=== PATIENT | male | born 1950 | race Caucasian/White ===

== ENCOUNTER 2021-10-25 06:18 | Day surgery (SDC) | payer MEDICARE, OTHER, SELFPAY ==
[2021-10-25] MEDS: TETRACAINE 0.5% OPHTH 1 DROP EYE-LEFT ×2 (06:30→06:35)
[2021-10-25] MEDS: KETOROLAC OPHTH 0.5% 1 DROP EYE-LEFT ×2 (06:34→06:35)
[2021-10-25 06:43] VITALS: BP 133/87; PULSE 60; RESP 16; TEMP 36.2; O2SAT 96
[2021-10-25] MEDS: SODIUM CHLORIDE 0.9 % (FLUSH) 10 ML SYRINGE IVF (06:50)
[2021-10-25 07:00] VITALS: BMI 31.1
[2021-10-25] MEDS: TETRACAINE 0.5% OPHTH 2 DROP EYE-LEFT (07:18)
[2021-10-25] MEDS: BALANCED SALT IRRIG SOLN 15 ML EYE-LEFT (07:22)
--- NOTE | 2021-10-25 07:23 | SUR.PREOP ---
The eye drops brought by the patient (Ketorolac and Prednisolone) are examined and I have determined they are labeled by the patient's pharmacy for this patient as prescribed by the surgeon. The bottles are intact, recently obtained and appear to be correct.
--- NOTE | 2021-10-25 07:45 | W.ANESCHARGE ---
Anesthesia Charges Start Date/Time Anesthesia Start Date: 10/25/21 Stop Date/Time Anesthesia Stop Date: 10/25/21 Anesthesia Stop Time: 07:42 Summary Emergency: No
[2021-10-25 07:47] VITALS: BP 135/89; PULSE 63; RESP 16; TEMP 36.2; O2SAT 96
--- NOTE | 2021-10-25 08:00 | W.ANESCHARGE ---
Anesthesia Charges Start Date/Time Anesthesia Start Date: 10/25/21 Anesthesia Start Time: 07:11 Stop Date/Time Anesthesia Stop Date: 10/25/21 Anesthesia Stop Time: 07:42 Summary Emergency: No
--- NOTE | 2021-10-25 08:34 | P.PCN_ITS ---
Procedure Note Date Seen: 10/25/21 Will [facility] bill your pro fee for this procedure?: Yes Procedure Description: SURGEON: Kaitlyn Velez MD PREOPERATIVE DIAGNOSIS: Nuclear sclerotic cataract, left eye. POSTOPERATIVE DIAGNOSIS: Nuclear sclerotic cataract, left eye. NAME OF OPERATION: Phacoemulsification of cataract with posterior chamber intraocular lens implantation in the left eye. ANESTHESIA: Topical. ESTIMATED BLOOD LOSS: Less than 2 cc. COMPLICATIONS: None. PATHOLOGY SPECIMEN: None. INDICATIONS: See consult note for details. The risks, benefits and alternatives of the procedure were explained to the patient, who elected to proceed and signed informed consent to do so. PROCEDURE: The patient was brought to the pre-holding area where the left eye was identified as the operative eye. I placed my initials above this eye. The patient received eye drops consisting of 0.5% tetracaine, 1% tropicamide, 10% phenylephrine, and 0.5% ketorolac. The patient was then brought to the operating room where the left eye was again identified as the operative eye. The eye was prepped with Betadine and draped in the usual sterile ophthalmic fashion. A #15 super-sharp blade was used to create a paracentesis site. 1% non-preserved intracameral lidocaine was injected into the anterior chamber. Endocoat was injected into the anterior chamber. A 2.4 mm keratome was used to create a three-plane self-sealing incision 1 mm anterior to the temporal limbus. A cystotome was used to create an anterior capsular leaflet. The Utrata forceps were used to extend this to form a continuous curvilinear capsulorrhexis. Hydrodissection was performed. The cataract was removed with phacoemulsification using the [id number] technique. The irrigation and aspiration tip was used to remove the remaining cortex. Healon was injected into the capsular bag. An NAUN ZCB00 intraocular lens of 17.5 diopters was injected into the capsular bag. The irrigation and aspiration tip was used to remove the remaining viscoelastic. Balanced salt solution on a cannula was used to hydrate the wound, and the wound was found to be watertight. Miostat was injected into due to borderline floppy iris. The pupil was noted to be round. DISPOSITION: The patient was taken to the recovery room and discharged to home in stable condition. The patient was instructed to call me or go to the emergency department with any sudden change, including dramatic loss of vision, severe pain in the eye or eyebrow region, nausea, or vomiting. The patient will follow up in the clinic tomorrow morning. Surgeon: Kaitlyn Velez MD
--- NOTE | 2021-11-16 08:19 | W.ANESCHARGE ---
Anesthesia Charges Start Date/Time Anesthesia Start Date: 10/25/21 Anesthesia Start Time: 07:11 Stop Date/Time Anesthesia Stop Date: 10/25/21 Anesthesia Stop Time: 07:42 Summary Emergency: No
--- NOTE | 2021-11-16 08:19 | W.ANESCHARGE ---
Anesthesia Charges Start Date/Time Anesthesia Start Date: 10/25/21 Anesthesia Start Time: 07:11 Stop Date/Time Anesthesia Stop Date: 10/25/21 Anesthesia Stop Time: 07:42 Summary Emergency: No
--- NOTE | 2021-11-16 08:20 | W.ANESCHARGE ---
Anesthesia Charges Start Date/Time Anesthesia Start Date: 10/25/21 Anesthesia Start Time: 07:11 Stop Date/Time Anesthesia Stop Date: 10/25/21 Anesthesia Stop Time: 07:42 Summary Emergency: No
--- NOTE | 2021-11-16 08:20 | W.ANESCHARGE ---
Anesthesia Charges Start Date/Time Anesthesia Start Date: 10/25/21 Anesthesia Start Time: 07:11 Stop Date/Time Anesthesia Stop Date: 10/25/21 Anesthesia Stop Time: 07:42 Summary Emergency: No
--- NOTE | 2021-11-16 08:21 | W.ANESCHARGE ---
Anesthesia Charges Start Date/Time Anesthesia Start Date: 10/25/21 Anesthesia Start Time: 07:11 Stop Date/Time Anesthesia Stop Date: 10/25/21 Anesthesia Stop Time: 07:42 Summary Emergency: No
== END 2021-10-25 08:19 | disposition home or self-care (01) ==
PROVIDERS: PCP Family Medicine; Visit Provider Ophthalmology
PROC: (CPT 66984; principal; 2021-10-25 06:15)
DX: H25.12 Age-related nuclear cataract, left eye (principal)
CPT/HCPCS: 66984; 142; A9270; J2250; J3010; V2632

== ENCOUNTER 2021-11-15 10:16 | Day surgery (SDC) | payer MEDICARE, OTHER, SELFPAY ==
[2021-11-15] MEDS: TETRACAINE 0.5% OPHTH 1 DROP EYE-RIGHT ×2 (10:28→10:32)
[2021-11-15] MEDS: KETOROLAC OPHTH 0.5% 1 DROP EYE-RIGHT ×2 (10:31→10:35)
[2021-11-15 10:32] VITALS: BMI 31.0
[2021-11-15 10:41] VITALS: BP 152/82; PULSE 63; RESP 16; TEMP 36.6; O2SAT 96
[2021-11-15] MEDS: SODIUM CHLORIDE 0.9 % (FLUSH) 10 ML SYRINGE IVF (10:43)
[2021-11-15] MEDS: TETRACAINE 0.5% OPHTH 2 DROP EYE-RIGHT (11:23)
[2021-11-15] MEDS: BALANCED SALT IRRIG SOLN 15 ML EYE-RIGHT (11:27)
--- NOTE | 2021-11-15 11:28 | W.ANESCHARGE ---
Anesthesia Charges Start Date/Time Anesthesia Start Date: 11/15/21 Anesthesia Start Time: 11:20 Stop Date/Time Anesthesia Stop Date: 11/15/21 Anesthesia Stop Time: 11:50 Summary Emergency: No
[2021-11-15 11:48] VITALS: BP 135/88; PULSE 61; RESP 16; TEMP 36.2; O2SAT 97
--- NOTE | 2021-11-15 12:40 | PM.PROC ---
Procedure Note Date Seen: 11/15/21 Will [facility] bill your pro fee for this procedure?: Yes Procedure Description: SURGEON: Kaitlyn Velez MD PREOPERATIVE DIAGNOSIS: Nuclear sclerotic cataract, right eye. POSTOPERATIVE DIAGNOSIS: Nuclear sclerotic cataract, right eye. NAME OF OPERATION: Phacoemulsification of cataract with posterior chamber intraocular lens implantation in the right eye. ANESTHESIA: Topical. ESTIMATED BLOOD LOSS: Less than 2 cc. COMPLICATIONS: None. PATHOLOGY SPECIMEN: None. INDICATIONS: See consult note for details. The risks, benefits and alternatives of the procedure were explained to the patient, who elected to proceed and signed informed consent to do so. PROCEDURE: The patient was brought to the pre-holding area where the right eye was identified as the operative eye. I placed my initials above this eye. The patient received eye drops consisting of 0.5% tetracaine, 1% tropicamide, 10% phenylephrine, and 0.5% ketorolac. The patient was then brought to the operating room where the right eye was again identified as the operative eye. The eye was prepped with Betadine and draped in the usual sterile ophthalmic fashion. A #15 super-sharp blade was used to create a paracentesis site. 1% non-preserved intracameral lidocaine was injected into the anterior chamber. Endocoat was injected into the anterior chamber. A 2.4 mm keratome was used to create a three-plane self-sealing incision 1 mm anterior to the temporal limbus. A cystotome was used to create an anterior capsular leaflet. The Utrata forceps were used to extend this to form a continuous curvilinear capsulorrhexis. Hydrodissection was performed. The cataract was removed with phacoemulsification using the [id number] technique. The irrigation and aspiration tip was used to remove the remaining cortex. Healon was injected into the capsular bag. An NAUN ZCB00 intraocular lens of 19.5 diopters was injected into the capsular bag. The irrigation and aspiration tip was used to remove the remaining viscoelastic. Balanced salt solution on a cannula was used to hydrate the wound, and the wound was found to be watertight. The pupil was noted to be round. DISPOSITION: The patient was taken to the recovery room and discharged to home in stable condition. The patient was instructed to call me or go to the emergency department with any sudden change, including dramatic loss of vision, severe pain in the eye or eyebrow region, nausea, or vomiting. The patient will follow up in the clinic tomorrow morning. Surgeon: Kaitlyn Velez MD
== END 2021-11-15 12:05 | disposition home or self-care (01) ==
PROVIDERS: PCP Family Medicine; Visit Provider Ophthalmology
PROC: (CPT 66984; principal; 2021-11-15 10:30)
DX: H25.11 Age-related nuclear cataract, right eye (principal)
CPT/HCPCS: 66984; 00142; A9270; J2250; J3010; V2632

== ENCOUNTER 2023-12-02 08:50 | Emergency (ER) | payer MEDICARE, OTHER, SELFPAY ==
[2023-12-02 08:56] VITALS: BP 153/102; PULSE 87; O2SAT 93; BMI 30.3
[2023-12-02 09:06] VITALS: RESP 18; TEMP 36.2
[2023-12-02 09:12] VITALS: O2SAT 95
--- NOTE | 2023-12-02 09:12 | CRLHL7_ITS ---
For Patients: As a result of the Century Cures Act, medical imaging exams and procedure reports are released immediately into your electronic medical record. You may view this report before your referring provider. If you have questions, please contact your health care provider. Indication: Shortness of breath and palpitations Technique: Chest 2 views Comparison: Chest x-ray 02/19/2017 Findings/Impression: Cardiovascular and mediastinum: Normal heart size with aortic tortuosity. Lungs and pleural spaces: Lungs are clear. No sign of infiltrate or mass. No sign of pleural effusion. No pneumothorax. Bones and soft tissues: Old midthoracic compression fracture. Surgical clips within the upper abdomen. Dictated by Glen Francis MD @ 12/02/2023 9:59:33 AM (Electronically Signed)
[2023-12-02] MEDS: 0.9 % SODIUM CHLORIDE 1000 ml 1,000 ML IV (09:20)
[2023-12-02] MEDS: ASPIRIN 81 MG TAB.CHEW 324 MG PO (09:20)
[2023-12-02 09:40] LABS: Basophils Absolute Auto 0.01 K/uL (0.00-0.30); Basophils Percent Auto 0.1 % (0.0-3.0); Eosinophils Absolute Auto 0.22 K/uL (0.00-0.50); Hematocrit 46.1 % (37.0-53.0); Immature Granulocytes Abs Auto 0.02 K/uL (0.00-0.30); Immature Granulocytes Pct Auto 0.2 %; Mean Corpuscular HGB Conc 33 gm/dL (32-36); Mean Corpuscular Hemoglobin 28 pg (26-34); Mean Corpuscular Volume 87 fL (80-100); Monocytes Percent Auto 7.2 % (0.0-11.0); Neutrophils Percent Auto 76.5 % (42.0-72.0); Platelet Count* 196 K/uL (140-440); RDW Coefficient of Variation % 11.8 % (11.5-15.5); Slide Review Reflex No; White Blood Count* 10.75 K/uL (4.50-11.00)
[2023-12-02 09:53] LABS: Chloride* 105 mmol/L (96-114); Prothrombin Time 12.7 Seconds; Sodium* 137 mmol/L (135-149)
[2023-12-02 09:54] LABS: Potassium* 3.9 mmol/L (3.6-5.1)
[2023-12-02 09:55] LABS: Partial Thromboplastin Time* 26 Seconds (23-33)
[2023-12-02 09:56] LABS: Anion Gap 10 mEq/L (7-15); Carbon Dioxide* 22 mmol/L (20-32); Creatinine* 0.7 mg/dL (0.5-1.5); Est. Creatinine Clearance* 67.75; Estimated Glomerular Filt Rate 99 ml/min
[2023-12-02 09:57] LABS: Blood Urea Nitrogen* 12 mg/dL (7-30); Calcium* 9.1 mg/dL (8.4-10.6); D Dimer Quantitative* 0.38 ug/ml (0.00-0.50); Glucose* 141 mg/dL (60-115)
[2023-12-02 10:07] LABS: Ethanol* < 0.01 % (0.01-0.03); NT Pro B Type NatriureticPept* 66 pg/mL
[2023-12-02 10:43] LABS: PCR FLU A Negative PCR FLU A (Negative); PCR FLU B Negative PCR FLU B (Negative); PCR RSV Negative PCR RSV (Negative); SARS PCR* Negative SARS-CoV-2 (Negative)
[2023-12-02 10:56] LABS: Troponin, Point-of-Care* 0.01 ng/ml (0.01-0.04)
[2023-12-02 12:36] LABS: Amphetamine Screen Urine Negative (Negative); Barbiturate Screen Urine Negative (Negative); Benzodiazepines Screen Urine Negative (Negative); Cannabinoid Screen Urine POSITIVE (Negative); Cocaine Screen Urine Negative (Negative); Methadone Screen Urine Negative (Negative); Methamphetamines Screen Urine Negative (Negative); Opiate Screen Urine Negative (Negative); Oxycodone Screen Urine Negative (Negative); Phencyclidine Screen Urine Negative (Negative); Tricyclic Antidepressant Urine Negative (Negative)
--- NOTE | 2023-12-02 16:10 | ED_ITS ---
HPI - Arrhythmia/Palpitations General Date Seen: 12/02/23 Chief Complaint: Arrhythmia/Palpitations Stated Complaint: palpitations, sweating, shortness of breath Time Seen by Provider: 12/02/23 08:51 Source: patient Mode of arrival: ambulatory Limitations: no limitations History of Present Illness HPI narrative: Patient is a 73-year-old gentleman who presents here with palpitations and elev ated blood pressure. He has been taking his blood pressure multiple times a day, noted that is pulses been irregular. This did cause him to have some anxiety, he however denies to me that he has any chest pain or pressure, maybe a little bit mildly short of breath, maybe more sweating. No history of previous problems with heart issues, denies a fevers chills or sweats, no nausea vomiting, PND orthopnea, or exertional issues associated with this. Sees Dr. Ulrich at [facility]. Denies a history of alcohol drugs, was a smoker but quit approximately 10 years ago. Patient has not missed any of his scheduled medications play complaint: skipped beats and palpitations Onset (ago): day(s) Duration: intermittent Context: occurred during rest and occurred during exertion Related Data Home Medications ?Medication ?Instructions ?Recorded ?Confirmed atorvastatin 20 mg tablet 20 mg PO HS 10/23/21 11/15/21 losartan 25 mg tablet 25 mg PO DAILY 10/23/21 11/15/21 Previous Rx's ?Medication ?Instructions ?Recorded nirmatrelvir 300 mg (150 mg 3 ea (3 x 300 mg (150 mg x 2)-100 11/02/22 x2)-ritonavir 100 mg tablet,dose mg) PO QAM AND QPM #30 tabs pack (Paxlovid) Allergies Allergy/AdvReac Type Severity Reaction Status Date / Time amoxicillin [From Augmentin] Allergy Verified 11/02/22 18:40 clavulanic acid Allergy Verified 11/02/22 18:40 [From Augmentin] Sulfa (Sulfonamide Allergy Rash Verified 11/02/22 18:40 Antibiotics) Review of Systems Status of ROS: Reports: 10 or more systems reviewed and unremarkable except as noted in History and below [facility] Medical History Hernia ?K46.9 - Unspecified abdominal hernia without obstruction or gangrene (ICD- 10) Hypertension ?I10 - Essential (primary) hypertension (ICD-10) Stricture of sigmoid colon ?K56.699 - Other intestinal obstruction unspecified as to partial versus complete obstruction (ICD-10) Segmental colitis ?K50.10 - Crohn's disease of large intestine without complications (ICD-10) Prostate CA ?C61 - Malignant neoplasm of prostate (ICD-10) Prediabetes ?R73.03 - Prediabetes (ICD-10) Mixed hyperlipidemia ?E78.2 - Mixed hyperlipidemia (ICD-10) Elevated coronary artery calcium score ?R93.1 - Abnormal findings on diagnostic imaging of heart and coronary circulation (ICD-10) Diverticulosis of colon (without mention of hemorrhage) ?K57.30 - Diverticulosis of large intestine without perforation or abscess without bleeding (ICD-10) CAD (coronary artery disease) ?I25.10 - Atherosclerotic heart disease of [place] coronary artery without angina pectoris (ICD-10) Surgical History H/O left inguinal hernia repair ?Z98.890 - Other specified postprocedural states (ICD-10) ?Z87.19 - Personal history of other diseases of the digestive system (ICD-10) S/P cholecystectomy ?Z90.49 - Acquired absence of other specified parts of digestive tract (ICD- 10) H/O umbilical hernia repair ?Z98.890 - Other specified postprocedural states (ICD-10) ?Z87.19 - Personal history of other diseases of the digestive system (ICD-10) Social History Smoking Status: Never smoker How often do you have a drink containing alcohol: 2-3 times a week AUDIT-C Alcohol total score: 3 Non-prescribed substance use: denies use Caffeine: Yes (daily) Exam Const: Vital Signs, click to edit/add: Vital Signs - 24 hr 12/02/23 08:56 12/02/23 09:06 12/02/23 09:12 Temperature 97.1 F L Pulse Rate [Left P ulse Oximeter] 87 Respiratory Rate 18 Blood Pressure [Le ft Upper Arm] 153/102 H Pulse Oximetry 93 95 Oxygen Delivery Me thod Room Air Course Course ED Course: Has the patient stayed here E actually felt better he had less of non palpitations in develop any chest pain shortness of breath he received aspirin. I had a long discussion with him troponin x2, EKGs are negative, chest x-ray is reassuring, his D-dimer was normal also. I think it is reasonable let him go, he will need better control of his blood pressure in follow-up appointment with his primary care physician we will endeavor to get for him, I would also says suggest a stress echo as an outpatient, he should stay on 80 mg of aspirin until he has a follow-up with his doctor went over warning signs when he should re- presented he is very comfortable with this. Vital Signs Vital signs: Initial Vital Signs Pulse Rate 87 12/02/23 08:56 Pulse Rhythm Regular 12/02/23 08:56 Pulse Strength 3+ Normal 12/02/23 08:56 Blood Pressure 153/102 H 12/02/23 08:56 Blood Pressure Mean 119 H 12/02/23 08:56 Blood Pressure Position Sitting 12/02/23 08:56 Pulse Oximetry 93 12/02/23 08:56 Oxygen Delivery Method Room Air 12/02/23 08:56 Vital Signs Pulse Rate 87 12/02/23 08:56 Blood Pressure 153/102 H 12/02/23 08:56 Pulse Oximetry 93 12/02/23 08:56 Oxygen Delivery Method Room Air 12/02/23 08:56 Temperature 97.1 F L 12/02/23 09:06 Pulse Rate 87 12/02/23 08:56 Respiratory Rate 18 12/02/23 09:06 Blood Pressure 153/102 H 12/02/23 08:56 Pulse Oximetry 95 12/02/23 09:12 Oxygen Delivery Method Room Air 12/02/23 08:56 Medications Administered Medications: Discontinued Medications Generic Name Dose Route Start Last Admin Trade Name Freq PRN Reason Stop Dose Admin Aspirin 324 mg 12/02/23 09:12 12/02/23 09:20 Aspirin 81 Mg Tab.Chew PO 12/02/23 09:13 324 mg ONCE ONE Administration Sodium Chloride 1,000 mls @ 1,000 mls/hr 12/02/23 09:15 12/02/23 12:06 0.9 % Sodium Chloride 1000 Ml IV 12/02/23 10:14 Infused .Q1H ANA Infusion MDM - Arrhythmia/Palpitations MDM Narrative Medical decision making narrative: Differential diagnosis includes but is not limited to psychosocial stress, thyroid abnormalities, CHF, SVT, atrial fibrillation, ventricular tachycardia and ventricular fibrillation. This includes the life-threatening complications of heart failure, V-tach, and VFib new Medical Records Attestation: I reviewed the patient's medical records. Lab Data Attestation: I reviewed the patient's lab results. Labs: Lab Results 12/02/23 12/02/23 12/02/23 Range/Units 09:13 09:27 11:54 WBC 10.75 (4.50-11.00) K/uL RBC 5.30 (4.30-5.90) m/uL Hgb 15.0 (13.5-17.5) gm/dL Hct 46.1 (37.0-53.0) % MCV 87 (80-100) fL MCH 28 (26-34) pg MCHC 33 (32-36) gm/dL RDW Coeff of Quintin 11.8 (11.5-15.5) % Plt Count 196 (140-440) K/uL Neut % (Auto) 76.5 H (42.0-72.0) % Lymph % (Auto) 14.0 L (20-44) % [place] % (Auto) 7.2 (0.0-11.0) % Eos % (Auto) 2.0 (0.0-7.0) % Baso % (Auto) 0.1 (0.0-3.0) % Neut # (Auto) 8.20 H (1.7-7.0) K/uL Lymph # (Auto) 1.50 (0.90-2.90) K/uL [place] # (Auto) 0.80 (0.00-0.90) K/UL Eos # (Auto) 0.22 (0.00-0.50) K/uL Baso # (Auto) 0.01 (0.00-0.30) K/uL Abs Immat Gran (auto) 0.02 (0.00-0.30) K/uL Imm/Tot Granulo (auto) 0.2 % INR 0.90 L (0.91-1.10) APTT 26 (23-33) Seconds D-Dimer Quant (PE/DVT) 0.38 (0.00-0.50) ug/ml Sodium 137 (135-149) mmol/L Potassium 3.9 (3.6-5.1) mmol/L Chloride 105 (96-114) mmol/L Carbon Dioxide 22 (20-32) mmol/L Anion Gap 10 (7-15) mEq/L BUN 12 (7-30) mg/dL Creatinine 0.7 (0.5-1.5) mg/dL Estimated Creat Clear 67.75 Estimated GFR 99 ml/min Glucose 141 H (60-115) mg/dL Calcium 9.1 (8.4-10.6) mg/dL NT-Pro-B Natriuret Pep 66 pg/mL Urine Opiates Screen (Negative) Ur Oxycodone Screen (Negative) Urine Methadone Screen (Negative) Ur Barbiturates Screen (Negative) U Tricyclic Antidepress (Negative) Ur Phencyclidine Scrn (Negative) Ur Amphetamines Screen (Negative) U Methamphetamines Scrn (Negative) U Benzodiazepines Scrn (Negative) Urine Cocaine Screen (Negative) U Marijuana (THC) Screen (Negative) Ur Drug Screen Comment Ethyl Alcohol < 0.01 L (0.01-0.03) % SARS-CoV-2 (PCR) Negative SARS-CoV-2 (Negative) Influenza Type A (PCR) Negative PCR FLU A (Negative) Influenza Type B (PCR) Negative PCR FLU B (Negative) RSV (PCR) Negative PCR RSV (Negative) POC Troponin I 0.01 0.00 L (0.01-0.04) ng/ml 12/02/23 Range/Units 12:06 WBC (4.50-11.00) K/uL RBC (4.30-5.90) m/uL Hgb (13.5-17.5) gm/dL Hct (37.0-53.0) % MCV (80-100) fL MCH (26-34) pg MCHC (32-36) gm/dL RDW Coeff of Quintin (11.5-15.5) % Plt Count (140-440) K/uL Neut % (Auto) (42.0-72.0) % Lymph % (Auto) (20-44) % [place] % (Auto) (0.0-11.0) % Eos % (Auto) (0.0-7.0) % Baso % (Auto) (0.0-3.0) % Neut # (Auto) (1.7-7.0) K/uL Lymph # (Auto) (0.90-2.90) K/uL [place] # (Auto) (0.00-0.90) K/UL Eos # (Auto) (0.00-0.50) K/uL Baso # (Auto) (0.00-0.30) K/uL Abs Immat Gran (auto) (0.00-0.30) K/uL Imm/Tot Granulo (auto) % INR (0.91-1.10) APTT (23-33) Seconds D-Dimer Quant (PE/DVT) (0.00-0.50) ug/ml Sodium (135-149) mmol/L Potassium (3.6-5.1) mmol/L Chloride (96-114) mmol/L Carbon Dioxide (20-32) mmol/L Anion Gap (7-15) mEq/L BUN (7-30) mg/dL Creatinine (0.5-1.5) mg/dL Estimated Creat Clear Estimated GFR ml/min Glucose (60-115) mg/dL Calcium (8.4-10.6) mg/dL NT-Pro-B Natriuret Pep pg/mL Urine Opiates Screen Negative (Negative) Ur Oxycodone Screen Negative (Negative) Urine Methadone Screen Negative (Negative) Ur Barbiturates Screen Negative (Negative) U Tricyclic Antidepress Negative (Negative) Ur Phencyclidine Scrn Negative (Negative) Ur Amphetamines Screen Negative (Negative) U Methamphetamines Scrn Negative (Negative) U Benzodiazepines Scrn Negative (Negative) Urine Cocaine Screen Negative (Negative) U Marijuana (THC) Screen POSITIVE A (Negative) Ur Drug Screen Comment See Note Ethyl Alcohol (0.01-0.03) % SARS-CoV-2 (PCR) (Negative) Influenza Type A (PCR) (Negative) Influenza Type B (PCR) (Negative) RSV (PCR) (Negative) POC Troponin I (0.01-0.04) ng/ml Imaging Data Chest x-ray: Attestation: I have reviewed the pertinent imaging results. My impression: No acute change Radiologist's impression: Patient: Arturo Arthur MR#: [id number] : 1950 Acct:[id number] Loc: ED Service Date: 12/02/[address]: Ordering Physician: Cedric Valentin M.D. Date of Service: 12/02/23 Procedure(s): XR chest 2V Accession Number(s): [id number] cc: Yogi Ulrich M.D.; Cedric Valentin M.D.~ For Patients: As a result of the Cures Act, medical imaging exams and procedure reports are released immediately into your electronic medical record. You may view this report before your referring provider. If you have questions, please contact your health care provider. Indication: Shortness of breath and palpitations Technique: Chest 2 views Comparison: Chest x-ray 02/19/2017 Findings/Impression: Cardiovascular and mediastinum: Normal heart size with aortic tortuosity. Lungs and pleural spaces: Lungs are clear. No sign of infiltrate or mass. No sign of pleural effusion. No pneumothorax. Bones and soft tissues: Old midthoracic compression fracture. Surgical clips within the upper abdomen. Dictated by Glen Francis MD @ 12/02/2023 9:59:33 AM ECG Data Attestation: I personally reviewed and interpreted this ECG as follows: ECG interpretation date: 12/02/23 Interpretation: EKG shows sinus rhythm with occasional PACs no acute ST wave changes, notable ventricular rates 88. Normal QRS, normal QT and QTC. Discharge Plan Discharge Clinical Impression: Heart palpitations, Hypertension, Atrial premature beats, Elevated glucose Patient Disposition: Home, Self-Care Condition: Stable Instructions: Heart Palpitations (DC), Chronic Hypertension (ED), Nondiabetic Hyperglycemia (ED) Additional Instructions: Home rest follow-up with primary care, he likely will put you on another medication for your high blood pressure and see if they can quell these extra beats that you have. Would also suggest a stress test, as an outpatient, they do these at the [facility] or we can set you up here. They are working on get you in to see her primary care physician. Taking a baby aspirin (80 mg) a day, to see her physician would also be a decent idea. Return if increasing symptoms, chest pain shortness of breath or other findings. [facility] should be calling you to schedule a follow up appointment. If you haven't received a call by today, 12/01, please call [phone]. Prescriptions: No Action Paxlovid 300 mg (150 mg x 2)-100 mg tablets,dose pack 3 ea PO QAM AND QPM Qty: 30 0RF atorvastatin 20 mg tablet 20 mg PO HS Patient Comments: TAKE 1 TABLET BY MOUTH AT BEDTIME losartan 25 mg tablet 25 mg PO DAILY Patient Comments: TAKE 1 TABLET BY MOUTH EVERY DAY Follow Up/Referrals: Yogi Ulrich MD [Primary Care Provider] - Stand Alone Forms: [employer] Info Instructions
== END 2023-12-02 13:12 | disposition home or self-care (01) ==
PROVIDERS: Emergency Provider Family Medicine; PCP Family Medicine
DX: R00.2 Palpitations (principal); I49.1 Atrial premature depolarization; I10 Essential (primary) hypertension; R73.02 Impaired glucose tolerance (oral)
CPT/HCPCS: 36415; 71046; 80048; 80306; 82077; 83880; 84484; 85025; 85379; 85610; 85730; 87631; 93005; 94761; 96360; 96361; 99284; 99285; A9270; J7030

== ENCOUNTER 2024-11-24 11:15 | Outpatient (RCR) | payer MEDICARE, OTHER, SELFPAY | END 2025-01-29 08:40 | disposition home or self-care (01) | PROVIDERS: PCP Family Medicine; Visit Provider Family Medicine | DX: M25.562 Pain in left knee (principal); G89.29 Other chronic pain; Z51.89 Encounter for other specified aftercare | CPT/HCPCS: 97110; 97112; 97161 ==